=== PATIENT | male | born 1945 | race Caucasian/White ===

== ENCOUNTER 2018-03-22 13:56 | Emergency (ER) | payer MEDICARE, BC ==
[~2018-03-22] VITALS: Ht 180.3 cm; Wt 127.3 kg
[~2018-03-22 13:56] MED LIST: AMLO2.5T2 PO; ASPI-1071 PO; BENA40TA2 PO; HCTZ25T PO; HYDR1TAB PO; LEVO750T21 PO; LOP25T PO; NORCO10T PO; PANT40TA39 PO; SIMV20TA5 PO; SYN0.075T PO
[2018-03-22 14:56] LABS: BASOPHILS % (AUTO) 0.5 % (0-1); EOSINOPHILS # (AUTO) 0.2 X10'3 (0-0.9); EOSINOPHILS % (AUTO) 2.3 % (0-6); HEMATOCRIT 44.4 % (42.0-52.0); HEMOGLOBIN 15.2 g/dl (14.0-17.9); LYMPHOCYTES # (AUTO) 2.3 X10'3 (1.1-4.8); LYMPHOCYTES % (AUTO) 26.4 % (21-51); MEAN CORPUSCULAR HEMOGLOBIN 32.7 PG (27.0-31.0); MEAN CORPUSCULAR HGB CONC 34.3 % (33.0-36.5); MEAN CORPUSCULAR VOLUME 95.5 FL (78-98); MEAN PLATELET VOLUME 10.6 FL (7.4-10.4); MONOCYTES % (AUTO) 11.4 % (2-12); NEUTROPHILS # (AUTO) 5.2 X10'3 (1.8-7.7); NEUTROPHILS % (AUTO) 59.4 % (42-75); PLATELET COUNT 165 X10'3 (140-440); RED BLOOD COUNT 4.65 X10'6 (4.70-6.10); RED CELL DISTRIBUTION WIDTH 14.9 % (11.5-14.5); WHITE BLOOD COUNT 8.7 X10'3 (4.5-11.0)
[2018-03-22 15:05] LABS: PARTIAL THROMBOPLASTIN TIME 25 SECONDS (22-32); PROTHROMBIN TIME 10.8 SECONDS (9.0-12.0)
[2018-03-22 15:18] LABS: ALANINE AMINOTRANSFERASE 130 U/L (12-78); ALKALINE PHOSPHATASE 205 IU/L (46-116); ANION GAP 9 (8-16); ASPARTATE AMINO TRANSFERASE 112 U/L (10-37); BILIRUBIN,TOTAL 7.4 MG/DL (0.1-1.0); BLOOD UREA NITROGEN 22 MG/DL (7-18); BUN/CREATININE RATIO 18.5 (5.4-32.0); CALCIUM 8.6 MG/DL (8.5-10.1); CHLORIDE 99 MMOL/L (99-107); CREATINE KINASE 118 U/L (39-308); CREATININE 1.19 MG/DL (0.60-1.10); GLUCOSE 120 MG/DL (70-104); MAGNESIUM 1.8 MG/DL (1.5-2.4); POTASSIUM 3.6 MMOL/L (3.5-5.1); SODIUM 140 MMOL/L (135-145); TOTAL CARBON DIOXIDE 32.1 MMOL/L (24-32); eGFR 60 ML/MIN
[2018-03-22 15:21] LABS: ALBUMIN/GLOBULIN RATIO 0.6 (1.1-1.5); PHOSPHORUS 2.8 MG/DL (2.3-4.5); TOTAL PROTEIN 7.8 G/DL (6.4-8.2)
[2018-03-22 15:22] LABS: ACETAMINOPHEN < 2.0 UG/ML (10-30)
[2018-03-22] MEDS: diatr meglu/diatrizoate 30ml oral sol.-(3 dose) bottle PO SCH ×3 (16:14→17:57)
[2018-03-22 16:36] LABS: CLARITY,URINE SLIGHTLY CLOUDY (Clear); COLOR,URINE YELLOW (Yellow); GLUCOSE, URINE NEGATIVE (Neg); KETONES,URINE NEGATIVE (Neg); LEUKOCYTE ESTERASE ,URINE NEGATIVE (Neg); NITRITES, URINE NEGATIVE (Neg); OCCULT BLOOD,URINE TRACE-INTACT (Neg); PH,URINE 5.5 (4.8-8.0); PROTEIN,URINE TRACE mg/dl (Neg); UROBILINOGEN,URINE 0.2 E.U/dL (0.2-1.0)
[2018-03-22 16:42] LABS: UA COLLECTION TYPE CLN CATCH MIDSTREAM
[2018-03-22 16:44] LABS: HYALINE CASTS 0-3 /LPF (NEGATIVE); MUCUS STRANDS FEW /LPF (Neg); SQUAMOUS EPITHELIAL CELL,UR FEW /LPF (FEW)
[2018-03-22 16:45] LABS: BACTERIA,URINE 1+ /HPF (Neg); RBC,URINE 0-2 /HPF (0-2); WBC,URINE 0-4 /HPF (0-4)
[2018-03-22 18:07] LABS: LIPASE 192 U/L (73-393)
[2018-03-22] MEDS ORDERED: iohexol 300mg/ml 100ml inj. ONE (18:09)
[2018-03-22 21:58] VITALS: BP 170/100
[2018-03-24 11:39] LABS: HBSAG SCREEN Negative (Negative); HEP A AB, IGM Negative (Negative); HEP B CORE AB, IGM Negative (Negative); HEPATITIS C ANTIBODY 0.2 s/co ratio (0.0-0.9)
== END 2018-03-22 22:59 | disposition home or self-care (01) ==
LOC: ER 13:57
DX: R17 Unspecified jaundice (principal); R10.84 Generalized abdominal pain; R50.9 Fever, unspecified; R11.0 Nausea; I25.10 Atherosclerotic heart disease of native coronary artery without angina pectoris; I10 Essential (primary) hypertension; K21.9 Gastro-esophageal reflux disease without esophagitis; Z98.890 Other specified postprocedural states; Z88.5 Allergy status to narcotic agent; Z88.0 Allergy status to penicillin; Z79.82 Long term (current) use of aspirin; Z79.899 Other long term (current) drug therapy
CPT/HCPCS: 36415; 74177; 76700; 80053; 80074; 80329; 81001; 82550; 83605; 83690; 83735; 83874; 83880; 84100; 84484; 85025; 85610; 85730; 87040; 93005; 99285; J7030; Q9963; Q9967

== ENCOUNTER 2018-06-21 11:07 | Inpatient (IN) | payer MEDICARE, BC ==
[~2018-06-21] VITALS: Ht 182.9 cm; Wt 122.0 kg
[~2018-06-21 11:07] MED LIST changes: -BENA40TA2 PO; +BENA40TA73 PO
[2018-06-21 11:37] LABS: CLARITY,URINE CLEAR (Clear); COLOR,URINE YELLOW (Yellow); GLUCOSE, URINE NEGATIVE (Neg); KETONES,URINE NEGATIVE (Neg); LEUKOCYTE ESTERASE ,URINE NEGATIVE (Neg); NITRITES, URINE NEGATIVE (Neg); OCCULT BLOOD,URINE TRACE-INTACT (Neg); PROTEIN,URINE >=300 mg/dl (Neg)
[2018-06-21 11:38] LABS: UA COLLECTION TYPE FOLEY CATH
[2018-06-21] MEDS ORDERED: normal saline 1000ML IV soln IVB ONE (11:45)
[2018-06-21 11:49] LABS: BACTERIA,URINE FEW /HPF (Neg); MUCUS STRANDS FEW /LPF (Neg); RBC,URINE 0-2 /HPF (0-2); SQUAMOUS EPITHELIAL CELL,UR FEW /LPF (FEW); WBC,URINE 0-4 /HPF (0-4)
[2018-06-21 11:55] LABS: URINE AMPHETAMINE SCREEN NEGATIVE (Neg); URINE BARBITUATE SCREEN NEGATIVE (Neg); URINE BENZODIAZEPINES SCREEN NEGATIVE (Neg); URINE CANNABINOID SCREEN NEGATIVE (Neg); URINE COCAINE SCREEN NEGATIVE (Neg); URINE METHADONE SCREEN NEGATIVE (Neg); URINE OPIATE SCREEN POSITIVE (Neg); URINE PHENCYCLIDINE SCREEN NEGATIVE (Neg)
[2018-06-21 11:57] LABS: BASOPHILS % (AUTO) 0 % (0-1); EOSINOPHILS % (AUTO) 0.1 % (0-6); HEMATOCRIT 45.3 % (42.0-52.0); HEMOGLOBIN 15.4 g/dl (14.0-17.9); LYMPHOCYTES # (AUTO) 0.7 X10'3 (1.1-4.8); LYMPHOCYTES % (AUTO) 8.4 % (21-51); MEAN CORPUSCULAR HEMOGLOBIN 32.6 PG (27.0-31.0); MEAN CORPUSCULAR HGB CONC 34.1 % (33.0-36.5); MEAN CORPUSCULAR VOLUME 95.5 FL (78-98); MEAN PLATELET VOLUME 9.7 FL (7.4-10.4); MONOCYTES # (AUTO) 0.1 X10'3 (0-0.9); MONOCYTES % (AUTO) 1.6 % (2-12); NEUTROPHILS # (AUTO) 7.8 X10'3 (1.8-7.7); NEUTROPHILS % (AUTO) 89.9 % (42-75); PLATELET COUNT 123 X10'3 (140-440); RED BLOOD COUNT 4.75 X10'6 (4.70-6.10); RED CELL DISTRIBUTION WIDTH 14.1 % (11.5-14.5); WHITE BLOOD COUNT 8.6 X10'3 (4.5-11.0)
[2018-06-21] MEDS ORDERED: acetaminophen 325mg tablet PO STA (12:17)
[2018-06-21 12:19] LABS: ALANINE AMINOTRANSFERASE 132 U/L (12-78); ALBUMIN 3.1 G/DL (3.4-5.0); ALBUMIN/GLOBULIN RATIO 0.7 (1.1-1.5); ALKALINE PHOSPHATASE 170 IU/L (46-116); ANION GAP 8 (8-16); ASPARTATE AMINO TRANSFERASE 157 U/L (10-37); BILIRUBIN,TOTAL 2.4 MG/DL (0.1-1.0); BLOOD UREA NITROGEN 25 MG/DL (7-18); BUN/CREATININE RATIO 19.8 (5.4-32.0); CALCIUM 8.1 MG/DL (8.5-10.1); CHLORIDE 101 MMOL/L (99-107); CREATININE 1.26 MG/DL (0.60-1.10); ETHANOL < 0.010 GM/DL (0.0-0.010); GLUCOSE 111 MG/DL (70-104); SODIUM 138 MMOL/L (135-145); TOTAL CARBON DIOXIDE 28.8 MMOL/L (24-32); TOTAL PROTEIN 7.4 G/DL (6.4-8.2); TROPONIN I < 0.04 NG/ML (0.0-0.05); eGFR 56 ML/MIN
[2018-06-21] MEDS ORDERED: CefTRIAXone 2gm/D5W 50ml 50 ML IV ONE (12:20)
[2018-06-21] MEDS ORDERED: normal saline 1000ML IV soln IV ONE (12:20)
[2018-06-21] MEDS ORDERED: iohexol 350MG/ML 100ml bottle IV ONE (13:10)
[2018-06-21] MEDS ORDERED: HYDROcodone/acetaminophen 5mg/325mg tablet PO PRN (13:35)
[2018-06-21] MEDS ORDERED: magnesium 4gm in 100ml NS 100 ML IV PRN (13:35)
[2018-06-21] MEDS ORDERED: mag hydrox/Alum hydrox/simeth 30ml oral suspension PO PRN (13:35)
[2018-06-21] MEDS ORDERED: magnesium 1gm/100ml D5W IVPB 100 ML IV PRN (13:35)
[2018-06-21] MEDS ORDERED: potassium Cl 40MEQ/NS 500ml 500 ML IV PRN ×2 (13:35)
[2018-06-21] MEDS ORDERED: HYDROcodone/acetaminophen 10/325mg tab PO PRN (13:35)
[2018-06-21] MEDS ORDERED: potassium Cl 20 mEq SR tablet PO PRN ×2 (13:35)
[2018-06-21] MEDS ORDERED: acetaminophen 325mg tablet PO PRN (13:35)
[2018-06-21] MEDS ORDERED: magnesium hydroxide 30ml (MOM) UD suspension PO PRN (13:35)
[2018-06-21] MEDS ORDERED: ondansetron/PF 4mg/2ml inj IV PRN (13:35)
[2018-06-21] MEDS: K and/or MAG REPLACEMENT MC SCH (13:35)
[2018-06-21 14:10] LABS: ABG BASE EXCESS 3.1 mmol/L (-2.0-3.0); ABG HCO3 28.6 mmol/L (22.0-26.0); ABG OXYGEN SATURATION 98.4 % (95-98); ABG PCO2 (T) 46.9 mmHg (35.0-48.0); ABG PH (T) 7.403 (7.350-7.450); ABG PO2 (T) 130.6 mmHg (83-108); ALLEN'S TEST Positive; FLOW 5 L/min; FMetHb 0.3 % (0.3-1.12); FO2Hb 97.1 % (94-100); TOTAL HEMOGLOBIN 14.8 G/dl (14.0-18.0)
[2018-06-21 14:31] LABS: INR 1.1 INR; PARTIAL THROMBOPLASTIN TIME 24 SECONDS (22-32); PROTHROMBIN TIME 10.9 SECONDS (9.0-12.0)
[2018-06-21 14:34] LABS: HEMOGLOBIN A1C 5.8 % (4.5-6.2)
[2018-06-21] MEDS ORDERED: ASPI-1071 PO (14:42)
[2018-06-21 14:43] LABS: PHOSPHORUS 1.3 MG/DL (2.3-4.5)
[2018-06-21] MEDS ORDERED: KRIL1CAP22 (14:47)
[2018-06-21] MEDS ORDERED: CHOL2000 PO (14:47)
[2018-06-21] MEDS ORDERED: LACT1CAP65 PO (14:47)
[2018-06-21 15:22] VITALS: BP 131/54
[2018-06-21] MEDS: normal saline 1000ml 1,000 ML IV SCH (15:45)
[2018-06-21 19:00] VITALS: BP 112/48
[2018-06-21] MEDS: metoprolol tartrate 25mg tablet PO SCH (20:11)
[2018-06-21] MEDS ORDERED: temazepam 15mg capsule PO PRN (21:00)
[2018-06-21 23:00] VITALS: BP 120/59
[2018-06-22] MEDS: normal saline 1000ml 1,000 ML IV SCH ×3 (02:58→16:48)
[2018-06-22 03:00] VITALS: BP 109/55
[2018-06-22 06:00] VITALS: BP 129/61
[2018-06-22 06:33] LABS: BASOPHILS % (AUTO) 0.3 % (0-1); EOSINOPHILS # (AUTO) 0.2 X10'3 (0-0.9); EOSINOPHILS % (AUTO) 1.7 % (0-6); HEMATOCRIT 39.1 % (42.0-52.0); HEMOGLOBIN 13.6 g/dl (14.0-17.9); LYMPHOCYTES # (AUTO) 2.1 X10'3 (1.1-4.8); LYMPHOCYTES % (AUTO) 17.6 % (21-51); MEAN CORPUSCULAR HEMOGLOBIN 33.3 PG (27.0-31.0); MEAN CORPUSCULAR HGB CONC 34.7 % (33.0-36.5); MEAN CORPUSCULAR VOLUME 95.9 FL (78-98); MEAN PLATELET VOLUME 10.6 FL (7.4-10.4); MONOCYTES # (AUTO) 1.5 X10'3 (0-0.9); MONOCYTES % (AUTO) 12.8 % (2-12); NEUTROPHILS # (AUTO) 7.9 X10'3 (1.8-7.7); NEUTROPHILS % (AUTO) 67.6 % (42-75); PLATELET COUNT 113 X10'3 (140-440); RED BLOOD COUNT 4.08 X10'6 (4.70-6.10); RED CELL DISTRIBUTION WIDTH 14.5 % (11.5-14.5); WHITE BLOOD COUNT 11.7 X10'3 (4.5-11.0)
[2018-06-22 07:05] LABS: LARGE PLATELETS FEW; PLATELET ESTIMATE DECREASED
[2018-06-22 07:10] LABS: ALANINE AMINOTRANSFERASE 135 U/L (12-78); ALBUMIN 2.6 G/DL (3.4-5.0); ALKALINE PHOSPHATASE 118 IU/L (46-116); ANION GAP 8 (8-16); ASPARTATE AMINO TRANSFERASE 122 U/L (10-37); BILIRUBIN,TOTAL 5.2 MG/DL (0.1-1.0); BLOOD UREA NITROGEN 21 MG/DL (7-18); BUN/CREATININE RATIO 16.7 (5.4-32.0); CALCIUM 7.3 MG/DL (8.5-10.1); CHLORIDE 102 MMOL/L (99-107); CREATININE 1.26 MG/DL (0.60-1.10); GLUCOSE 93 MG/DL (70-104); HDL CHOLESTEROL 43 MG/DL (35-60); LDL CHOLESTEROL 154 MG/DL (50-100); MAGNESIUM 1.3 MG/DL (1.5-2.4); POTASSIUM 3.7 MMOL/L (3.5-5.1); SODIUM 139 MMOL/L (135-145); TOTAL CARBON DIOXIDE 28.7 MMOL/L (24-32); eGFR 56 ML/MIN
[2018-06-22 07:15] LABS: ALBUMIN/GLOBULIN RATIO 0.7 (1.1-1.5); CHOL/HDL RATIO 4.8 (0.00-4.99); CHOLESTEROL 206 MG/DL (0-200); TOTAL PROTEIN 6.3 G/DL (6.4-8.2); TRIGLYCERIDES 81 MG/DL (20-135)
[2018-06-22] MEDS ORDERED: lisinopril 20mg tablet PO SCH (08:00)
[2018-06-22] MEDS ORDERED: enoxaparin 40mg/0.4ml syringe SUBCUT SCH (08:00)
[2018-06-22] MEDS: K and/or MAG REPLACEMENT MC SCH (08:00)
[2018-06-22] MEDS ORDERED: cefTRIAXone 1g/NS 100ml IVPB 100 ML IV SCH ×2 (08:00→20:00)
[2018-06-22] MEDS ORDERED: pantoprazole 40mg Tablet.DR PO SCH (08:00)
[2018-06-22] MEDS: levoTHYROXINE 75mcg tablet PO SCH (08:30)
[2018-06-22] MEDS: metoprolol tartrate 25mg tablet PO SCH ×2 (08:30→21:54)
[2018-06-22] MEDS: aspirin 81mg tablet.DR PO SCH (08:31)
[2018-06-22] MEDS: amLODIPine 2.5mg tablet PO SCH (08:31)
[2018-06-22] MEDS ORDERED: sodium phosphate inj. 15 MMOL in dextrose 5%-water 150 ML IV PRN (09:30)
[2018-06-22] MEDS: pantoprazole 40 MG vial IV SCH (09:30)
[2018-06-22] MEDS ORDERED: sodium phosphate inj. 30 MMOL in dextrose 5%-water 250 ML IV PRN (09:30)
[2018-06-22 10:56] LABS: PHOSPHORUS 2.2 MG/DL (2.3-4.5)
[2018-06-22 11:00] VITALS: BP 115/55
[2018-06-22] MEDS: magnesium Cl slow-release 64mg tablet PO PRN ×2 (11:49→22:29)
[2018-06-22] MEDS: Neutra Phos packet PO PRN ×3 (11:49→22:29)
[2018-06-22] MEDS: acetaminophen 325mg tablet PO PRN (11:49)
[2018-06-22] MEDS ORDERED: meperidine/PF 100mg/ml syringe ONE (13:06)
[2018-06-22] MEDS ORDERED: fentaNYL/PF 50MCG/1 ML 2ML syringe ONE (13:06)
[2018-06-22] MEDS ORDERED: MIDAZolam 5mg/5ml vial ONE (13:07)
[2018-06-22] MEDS ORDERED: LIDOcaine Viscous 15ml cup ONE (13:07)
[2018-06-22] MEDS ORDERED: diphenhydrAMINE 50 mg/ml inj ONE (13:08)
[2018-06-22] MEDS ORDERED: glucagon, human recombinant 1mg kit ONE ×2 (13:08→13:09)
[2018-06-22] MEDS ORDERED: iohexol 300 MG/1 ML 50ml polymer ONE ×2 (13:09→13:11)
[2018-06-22 13:17] VITALS: BP 132/75
[2018-06-22] MEDS: metroNIDAZOLE-Flagyl 500mg/NS 100 ML IV SCH (16:47)
[2018-06-22 19:00] VITALS: BP 146/64
[2018-06-22] MEDS ORDERED: D5W ROCEPHIN IV ONE (21:40)
[2018-06-22] MEDS ORDERED: CEFTRIAXONE IV ONE (21:40)
[2018-06-22] MEDS: lactobacillus rhamnosus 10,000 MMU CELLS/CAPSULE PO SCH (21:54)
[2018-06-22 23:00] VITALS: BP 138/56
[2018-06-23] MEDS: metroNIDAZOLE-Flagyl 500mg/NS 100 ML IV SCH ×3 (00:35→16:39)
[2018-06-23] MEDS: normal saline 1000ml 1,000 ML IV SCH ×4 (00:36→19:34)
[2018-06-23 03:00] VITALS: BP 146/72
[2018-06-23 05:54] LABS: BASOPHILS % (AUTO) 0.5 % (0-1); EOSINOPHILS # (AUTO) 0.2 X10'3 (0-0.9); EOSINOPHILS % (AUTO) 2.4 % (0-6); HEMATOCRIT 38.4 % (42.0-52.0); LYMPHOCYTES # (AUTO) 1.6 X10'3 (1.1-4.8); MEAN CORPUSCULAR HEMOGLOBIN 32.9 PG (27.0-31.0); MEAN CORPUSCULAR HGB CONC 33.9 % (33.0-36.5); MEAN CORPUSCULAR VOLUME 96.8 FL (78-98); MEAN PLATELET VOLUME 10.8 FL (7.4-10.4); MONOCYTES # (AUTO) 0.9 X10'3 (0-0.9); MONOCYTES % (AUTO) 10.3 % (2-12); NEUTROPHILS # (AUTO) 5.8 X10'3 (1.8-7.7); NEUTROPHILS % (AUTO) 67.8 % (42-75); PLATELET COUNT 106 X10'3 (140-440); RED BLOOD COUNT 3.96 X10'6 (4.70-6.10); RED CELL DISTRIBUTION WIDTH 14.4 % (11.5-14.5); WHITE BLOOD COUNT 8.6 X10'3 (4.5-11.0)
[2018-06-23 06:00] VITALS: BP 137/75
[2018-06-23 06:21] LABS: ALANINE AMINOTRANSFERASE 114 U/L (12-78); ALBUMIN 2.6 G/DL (3.4-5.0); ALKALINE PHOSPHATASE 115 IU/L (46-116); ANION GAP 8 (8-16); ASPARTATE AMINO TRANSFERASE 98 U/L (10-37); BILIRUBIN,TOTAL 5.5 MG/DL (0.1-1.0); BLOOD UREA NITROGEN 20 MG/DL (7-18); BUN/CREATININE RATIO 18.3 (5.4-32.0); CALCIUM 7.7 MG/DL (8.5-10.1); CHLORIDE 104 MMOL/L (99-107); CREATININE 1.09 MG/DL (0.60-1.10); GLUCOSE 102 MG/DL (70-104); MAGNESIUM 1.6 MG/DL (1.5-2.4); SODIUM 140 MMOL/L (135-145); TOTAL CARBON DIOXIDE 28.5 MMOL/L (24-32); eGFR 66 ML/MIN
[2018-06-23 06:25] LABS: ALBUMIN/GLOBULIN RATIO 0.7 (1.1-1.5); POTASSIUM 3.6 MMOL/L (3.5-5.1); TOTAL PROTEIN 6.5 G/DL (6.4-8.2)
[2018-06-23] MEDS: pantoprazole 40 MG vial IV SCH (07:33)
[2018-06-23] MEDS: amLODIPine 2.5mg tablet PO SCH (07:34)
[2018-06-23] MEDS: aspirin 81mg tablet.DR PO SCH (07:34)
[2018-06-23] MEDS: lactobacillus rhamnosus 10,000 MMU CELLS/CAPSULE PO SCH ×2 (07:34→19:31)
[2018-06-23] MEDS: K and/or MAG REPLACEMENT MC SCH (07:35)
[2018-06-23] MEDS: levoTHYROXINE 75mcg tablet PO SCH (07:35)
[2018-06-23] MEDS: metoprolol tartrate 25mg tablet PO SCH ×2 (07:35→19:31)
[2018-06-23] MEDS: CefTRIAXone/D5W-Rocephin 1gm 50 ML IV SCH ×2 (09:45→19:32)
[2018-06-23 11:00] VITALS: BP 154/77
[2018-06-23] MEDS: acetaminophen 325mg tablet PO PRN (11:23)
[2018-06-23 15:00] VITALS: BP 147/74
[2018-06-23] MEDS: Neutra Phos packet PO PRN (18:22)
[2018-06-23 19:00] VITALS: BP 175/95
[2018-06-23 23:00] VITALS: BP 141/65
[2018-06-24] MEDS: metroNIDAZOLE-Flagyl 500mg/NS 100 ML IV SCH ×2 (00:40→07:45)
[2018-06-24] MEDS: Neutra Phos packet PO PRN ×2 (00:41→09:33)
[2018-06-24] MEDS: normal saline 1000ml 1,000 ML IV SCH ×2 (02:29→08:15)
[2018-06-24 03:00] VITALS: BP 158/64
[2018-06-24 06:00] VITALS: BP 161/66
[2018-06-24 07:02] LABS: BASOPHILS % (AUTO) 0.1 % (0-1); EOSINOPHILS # (AUTO) 0.2 X10'3 (0-0.9); HEMOGLOBIN 13.2 g/dl (14.0-17.9); LYMPHOCYTES # (AUTO) 1.5 X10'3 (1.1-4.8); LYMPHOCYTES % (AUTO) 19.6 % (21-51); MEAN CORPUSCULAR HEMOGLOBIN 32.9 PG (27.0-31.0); MEAN CORPUSCULAR HGB CONC 33.9 % (33.0-36.5); MEAN CORPUSCULAR VOLUME 97.1 FL (78-98); MEAN PLATELET VOLUME 11.2 FL (7.4-10.4); MONOCYTES # (AUTO) 0.8 X10'3 (0-0.9); MONOCYTES % (AUTO) 10.1 % (2-12); NEUTROPHILS # (AUTO) 5.4 X10'3 (1.8-7.7); NEUTROPHILS % (AUTO) 68.2 % (42-75); PLATELET COUNT 101 X10'3 (140-440); RED BLOOD COUNT 4.02 X10'6 (4.70-6.10); RED CELL DISTRIBUTION WIDTH 14.5 % (11.5-14.5); WHITE BLOOD COUNT 7.9 X10'3 (4.5-11.0)
[2018-06-24] MEDS: amLODIPine 2.5mg tablet PO SCH (07:46)
[2018-06-24] MEDS: pantoprazole 40 MG vial IV SCH (07:46)
[2018-06-24] MEDS: levoTHYROXINE 75mcg tablet PO SCH (07:46)
[2018-06-24] MEDS: acetaminophen 325mg tablet PO PRN (07:46)
[2018-06-24 07:47] LABS: HYPOGRANULAR PLATELETS FEW; LARGE PLATELETS FEW; PLATELET ESTIMATE DECREASED
[2018-06-24] MEDS: aspirin 81mg tablet.DR PO SCH (07:47)
[2018-06-24] MEDS: lactobacillus rhamnosus 10,000 MMU CELLS/CAPSULE PO SCH (07:47)
[2018-06-24] MEDS: metoprolol tartrate 25mg tablet PO SCH (07:47)
[2018-06-24 07:57] LABS: ALANINE AMINOTRANSFERASE 106 U/L (12-78); ALBUMIN 2.6 G/DL (3.4-5.0); ALKALINE PHOSPHATASE 129 IU/L (46-116); ANION GAP 10 (8-16); ASPARTATE AMINO TRANSFERASE 82 U/L (10-37); BILIRUBIN,TOTAL 4.7 MG/DL (0.1-1.0); BLOOD UREA NITROGEN 14 MG/DL (7-18); CALCIUM 7.9 MG/DL (8.5-10.1); CHLORIDE 103 MMOL/L (99-107); CREATININE 1.08 MG/DL (0.60-1.10); GLUCOSE 91 MG/DL (70-104); MAGNESIUM 1.4 MG/DL (1.5-2.4); POTASSIUM 3.7 MMOL/L (3.5-5.1); SODIUM 140 MMOL/L (135-145); TOTAL CARBON DIOXIDE 26.6 MMOL/L (24-32); eGFR 67 ML/MIN
[2018-06-24 07:58] LABS: ALBUMIN/GLOBULIN RATIO 0.7 (1.1-1.5); TOTAL PROTEIN 6.6 G/DL (6.4-8.2)
[2018-06-24] MEDS: K and/or MAG REPLACEMENT MC SCH (08:00)
[2018-06-24] MEDS: CefTRIAXone/D5W-Rocephin 1gm 50 ML IV SCH (09:32)
[2018-06-24] MEDS: magnesium Cl slow-release 64mg tablet PO PRN (09:33)
[2018-06-24 11:00] VITALS: BP 148/71
== END 2018-06-24 14:18 | disposition home or self-care (01) | DRG 871 ==
LOC: ER 11:08 → ED HOLD 13:35 → PCU 3S 15:08
PROVIDERS: ADMIT Family Medicine; ATTEND Family Medicine
PROC: B32T1ZZ Computerized Tomography (CT Scan) of Left Pulmonary Artery using Low Osmolar Contrast (ICD-10-PCS; principal; 2018-06-21)
PROC: B3201ZZ Computerized Tomography (CT Scan) of Thoracic Aorta using Low Osmolar Contrast (ICD-10-PCS; 2018-06-21)
PROC: B32S1ZZ Computerized Tomography (CT Scan) of Right Pulmonary Artery using Low Osmolar Contrast (ICD-10-PCS; 2018-06-21)
DX: A41.9 Sepsis, unspecified organism (principal); J96.01 Acute respiratory failure with hypoxia; K83.0 Cholangitis; D69.6 Thrombocytopenia, unspecified; E03.9 Hypothyroidism, unspecified; E78.5 Hyperlipidemia, unspecified; I12.9 Hypertensive chronic kidney disease with stage 1 through stage 4 chronic kidney disease, or unspecified chronic kidney disease; I25.10 Atherosclerotic heart disease of native coronary artery without angina pectoris; K21.9 Gastro-esophageal reflux disease without esophagitis; K76.0 Fatty (change of) liver, not elsewhere classified; N18.9 Chronic kidney disease, unspecified; N40.0 Benign prostatic hyperplasia without lower urinary tract symptoms; Z90.49 Acquired absence of other specified parts of digestive tract; Z95.5 Presence of coronary angioplasty implant and graft; Z88.6 Allergy status to analgesic agent; Z88.0 Allergy status to penicillin; Z79.82 Long term (current) use of aspirin; Z79.899 Other long term (current) drug therapy; Z87.891 Personal history of nicotine dependence
CPT/HCPCS: 36415; 36600; 70450; 71045; 71275; 74177; 74181; 76700; 80053; 80061; 80305; 80320; 81001; 82140; 82803; 82977; 83036; 83605; 83690; 83735; 83880; 84100; 84145; 84443; 84484; 85018; 85025; 85610; 85651; 85730; 87040; 87070; 93005; 93306; 96361; 96365; 99285; C1758; C9113; J0696; J1200; J1610; J1650; J2175; J2250; J3010; J3490; J7030; Q9967

== ENCOUNTER 2019-12-28 08:44 | Day surgery (SDC) | payer MEDICARE, BC ==
[2019-12-28] VITALS (9 sets, daily range): BP systolic 146–165; BP diastolic 66–85
[~2019-12-28] VITALS: Ht 180.3 cm; Wt 122.4 kg
[~2019-12-28 08:44] MED LIST changes: +CHOL2000 PO; -HYDR1TAB PO; +KRIL1CAP22; +LACT1CAP65 PO; -LEVO750T21 PO; -NORCO10T PO; -SIMV20TA5 PO
[2019-12-28] MEDS ORDERED: normal saline 1000ml 1,000 ML IV SCH (09:05)
[2019-12-28] MEDS ORDERED: GABA-532 PO (09:48)
[2019-12-28] MEDS ORDERED: fentaNYL/PF 50MCG/1 ML 2ML syringe ONE (09:48)
[2019-12-28] MEDS ORDERED: NAPR220T67 PO (09:48)
[2019-12-28] MEDS ORDERED: midazolam 2 mg/2 ml injection ONE (09:48)
[2019-12-28 10:00] LABS: BASOPHILS % (AUTO) 0.8 % (0-1); EOSINOPHILS # (AUTO) 0.2 X10'3 (0-0.9); EOSINOPHILS % (AUTO) 2.7 % (0-6); HEMATOCRIT 45.3 % (42.0-52.0); HEMOGLOBIN 15.4 g/dl (14.0-17.9); LYMPHOCYTES # (AUTO) 2.1 X10'3 (1.1-4.8); LYMPHOCYTES % (AUTO) 32.8 % (21-51); MEAN CORPUSCULAR HEMOGLOBIN 32.8 PG (27.0-31.0); MEAN CORPUSCULAR HGB CONC 33.9 g/dL (33.0-36.5); MEAN CORPUSCULAR VOLUME 96.7 FL (78-98); MONOCYTES # (AUTO) 0.8 X10'3 (0-0.9); MONOCYTES % (AUTO) 11.8 % (2-12); NEUTROPHILS # (AUTO) 3.3 X10'3 (1.8-7.7); NEUTROPHILS % (AUTO) 51.9 % (42-75); PLATELET COUNT 127 X10'3 (140-440); RED BLOOD COUNT 4.69 X10'6 (4.70-6.10); WHITE BLOOD COUNT 6.4 X10'3 (4.5-11.0)
[2019-12-28 10:10] LABS: ALBUMIN 3.7 G/DL (3.4-5.0); ANION GAP 6 (8-16); BLOOD UREA NITROGEN 22 MG/DL (7-18); BUN/CREATININE RATIO 21.8 (5.4-32.0); CALCIUM 8.8 MG/DL (8.5-10.1); CHLORIDE 106 MMOL/L (99-107); CREATININE 1.01 MG/DL (0.60-1.10); GLUCOSE 98 MG/DL (70-104); POTASSIUM 3.9 MMOL/L (3.5-5.1); SODIUM 145 MMOL/L (135-145); TOTAL CARBON DIOXIDE 33.3 MMOL/L (24-32); eGFR 72 ML/MIN
[2019-12-29] MEDS ORDERED: pneumococcal 23-VAL P-sac vacc 25 mcg/0.5ml vial IMVAC ONE (10:00)
== END 2019-12-28 11:35 | disposition home or self-care (01) ==
LOC: SSTAY O 08:44
PROVIDERS: ATTEND Radiology Vascular & Interventional Radiology
DX: M54.5 Low back pain (principal); M25.48 Effusion, other site; G89.4 Chronic pain syndrome; I25.10 Atherosclerotic heart disease of native coronary artery without angina pectoris; I10 Essential (primary) hypertension; E03.9 Hypothyroidism, unspecified; E78.5 Hyperlipidemia, unspecified; Z87.891 Personal history of nicotine dependence
CPT/HCPCS: 20225; 36415; 77012; 80048; 85025; 85610; J2250; J3010; 99152; 99153

== ENCOUNTER 2020-04-28 08:45 | Day surgery (SDC) | payer MEDICARE, BC ==
[2020-04-21 16:48] LABS: BASOPHILS # (AUTO) 0.1 X10'3 (0-0.2); EOSINOPHILS # (AUTO) 0.2 X10'3 (0-0.9); LYMPHOCYTES # (AUTO) 3.1 X10'3 (1.1-4.8); LYMPHOCYTES % (AUTO) 38.3 % (21-51); MEAN CORPUSCULAR HEMOGLOBIN 32.6 PG (27.0-31.0); MEAN CORPUSCULAR HGB CONC 33.7 g/dL (33.0-36.5); MEAN CORPUSCULAR VOLUME 96.5 FL (78-98); MEAN PLATELET VOLUME 10.2 FL (7.4-10.4); MONOCYTES % (AUTO) 12.4 % (2-12); NEUTROPHILS # (AUTO) 3.8 X10'3 (1.8-7.7); NEUTROPHILS % (AUTO) 46.3 % (42-75); PRE OP HEMATOCRIT 44.4 % (42.0-52.0); PRE OP PLATELET COUNT 140 X10'3 (140-440); RED CELL DISTRIBUTION WIDTH 13.7 % (11.5-14.5)
[2020-04-21 17:01] LABS: ALBUMIN 3.5 G/DL (3.4-5.0); ALBUMIN/GLOBULIN RATIO 0.8 (1.1-1.5); ALKALINE PHOSPHATASE 134 IU/L (46-116); BLOOD UREA NITROGEN 20 MG/DL (7-18); BUN/CREATININE RATIO 17.5 (5.4-32.0); CALCIUM 8.6 MG/DL (8.5-10.1); CHLORIDE 104 MMOL/L (99-107); CREATININE 1.14 MG/DL (0.60-1.10); PRE OP ALT 43 U/L (30-65); PRE OP ANION GAP 8 (8-16); PRE OP AST 43 U/L (10-37); PRE OP BILIRUB, TOTAL 0.6 MG/DL (0.0-1.0); PRE OP GLUCOSE 91 MG/DL (70-104); PRE OP POTASSIUM 4.1 MMOL/L (3.4-5.1); PRE OP SODIUM 143 MMOL/L (135-145); TOTAL CARBON DIOXIDE 31.1 MMOL/L (24-32); TOTAL PROTEIN 7.7 G/DL (6.4-8.2); eGFR 62 ML/MIN
[~2020-04-28] VITALS: Ht 180.3 cm; Wt 119.0 kg
[~2020-04-28 08:45] MED LIST changes: +ACET-812 PO; +DOCUMENT DATE & TIME OF BETA-BLOCKER PO ONE; -KRIL1CAP22; +KRIL1CAP22 PO; +MAGN400C PO; +MULT-1085 PO; +ROSU10TA2 PO; +ceFAZolin 1,000 MG/D5W 50ML IVPB Premixed bag IV ONE; +ceFAZolin 2gm in dextrose, iso 50 ML IV ONE; +famotidine 20mg tablet PO ONE; +ringers solution, lacted 1,000 ML IV SCH
[2020-04-28 09:00] VITALS: BP 164/84
[2020-04-28] MEDS ORDERED: LIDOcaine 0.5% (5mg/ml) 50ml vial ONE (09:23)
[2020-04-28] MEDS ORDERED: ringers solution, lacted 1,000 ML IV SCH (09:27)
[2020-04-28] MEDS ORDERED: meperidine/PF 25mg/ml syringe IV PRN ×3 (09:30)
[2020-04-28] MEDS ORDERED: proCHLORperazine 10 MG/2 ml inj IV PRN (09:30)
[2020-04-28] MEDS ORDERED: morphine 2 MG/ML inj. syringe IV PRN (09:30)
[2020-04-28] MEDS ORDERED: ondansetron/PF 4mg/2ml inj IV PRN (09:30)
[2020-04-28] MEDS ORDERED: morphine 4 MG/ML inj SYRINge IV PRN (09:30)
[2020-04-28] MEDS ORDERED: BUPIVAcaine/PF 2.5mg/ml (0.25%) 10ml vial ONE (10:00)
[2020-04-28] MEDS ORDERED: fentaNYL/PF 50MCG/1 ML 2ML syringe ONE (10:14)
[2020-04-28] MEDS ORDERED: midazolam 2 mg/2 ml injection ONE (10:14)
[2020-04-28 10:49] VITALS: BP 153/83
--- NOTE | 2020-04-28 10:49 | NUR ---
Received from OR via [facility] , accompanied by Anesthesiologist MARTI and report given by Anesthesiolgist. PATIENT WITH 22G PIV IN LEFT HAND RUNNING LR AT 100. DENIES PAIN IN RIGHT WRIST. MOVES FINGERS. + CAP REFILL. BIAS DRESSING IS CDI. VSS. ON RA WITH 94% Addendum: 04/28/20 at 1059 by Jose Antonio Dockery RN, RN Amended: Links added.
[2020-04-28 10:59] VITALS: BP 151/80
[2020-04-28 11:09] VITALS: BP 154/82
[2020-04-28 11:19] VITALS: BP 150/80
--- NOTE | 2020-04-28 11:29 | NUR ---
I HAVE REVIEWED D/C INSTRUCTIONS WITH PATIENT AND FAMILY AND THEY HAVE VERBALIZED UNDERSTANDING. PATIENT D/C HOME WITH ALL BELONGINGS AND FAMILY GAVE TRANSPORT HOME.WRIST DRESSING STILL CDI. VSS. ICE DONNED. OUT VIA WHEELCHAIR TO PERSONAL VEHICLE WHERE SPOUSE GAVE PATIENT A RIDE HOME. Addendum: 04/28/20 at 1132 by Jose Antonio Dockery RN, RN Amended: Links added.
== END 2020-04-28 11:29 | disposition home or self-care (01) ==
LOC: PAS 08:45
PROVIDERS: ATTEND Orthopaedic Surgery Hand Surgery
DX: G56.01 Carpal tunnel syndrome, right upper limb (principal); I10 Essential (primary) hypertension; K21.9 Gastro-esophageal reflux disease without esophagitis; E03.9 Hypothyroidism, unspecified; M17.10 Unilateral primary osteoarthritis, unspecified knee; M18.11 Unilateral primary osteoarthritis of first carpometacarpal joint, right hand; Z11.59 Encounter for screening for other viral diseases; Z79.899 Other long term (current) drug therapy; Z98.890 Other specified postprocedural states; Z86.73 Personal history of transient ischemic attack (TIA), and cerebral infarction without residual deficits; Z87.891 Personal history of nicotine dependence; Z95.5 Presence of coronary angioplasty implant and graft; Z88.0 Allergy status to penicillin; Z90.49 Acquired absence of other specified parts of digestive tract
CPT/HCPCS: 36415; 64721; 80053; 82948; 85025; 93005; A6222; J0690; J2001; J2250; J3010; J3490; U0003; A4215; A4615; A4618; J7120